=== PATIENT | male | born 1995 | race Asian ===

== ENCOUNTER 2017-11-02 13:19 | Emergency (ER) | payer OTHER ==
[2017-11-02 13:24] VITALS: BP 137/58; PULSE 95; RESP 16; TEMP 98.5; O2SAT 100
--- NOTE | 2017-11-02 14:55 | PD ---
HPI Chief Complaint: Flank/Kidney Pain Time Seen by Provider: 14:02 Travel History International Travel<30 days: No Contact w/Intl Traveler<30days: No Traveled to known affect area: No History of Present Illness HPI 21 yo M c/o R flank pain since this morning. He woke up with the pain. No recent injury or excessive muscle use. He reports a history of kidney stones and states today feel very different from today's event. He has not seen blood in the urine. He wonders if it might be appendicitis. He's had no fever. The appetite has been normal. Pain is intermittent though at times can be severe. [facility] Social History Alcohol Use: No Tobacco Use: No Substance Use: No Allergies-Medications (Allergen,Severity, Reaction): Coded Allergies: Penicillins (Verified Allergy, Unknown, 11/02/17) Reported Meds & Prescriptions Reported Meds & Active Scripts Active Calcium Gluconate 45 Mg Calcium (500 Mg) Tab 500 Mg PO DAILY 30 Days 1 gram of salt is 93 mg elemental calcium. Review of Systems Except as stated in HPI: all other systems reviewed are Neg Physical Exam Narrative GENERAL: 21 yo M, WNWD, NAD Vital Signs Date Time Temp Pulse Resp B/P (MAP) Pulse Ox O2 Delivery O2 Flow Rate FiO2 11/02/17 13:24 98.5 95 16 137/58 (84) 100 SKIN: Warm and dry. HEAD: Atraumatic. Normocephalic. EYES: Pupils equal and round. No scleral icterus. No injection or drainage. ENT: No nasal bleeding or discharge. Mucous membranes pink and moist. NECK: Trachea midline. No JVD. CARDIOVASCULAR: Regular rate and rhythm. RESPIRATORY: No accessory muscle use. Clear to auscultation. Breath sounds equal bilaterally. GASTROINTESTINAL: There is no abdominal tenderness. There is trace tenderness to percussion of the right flank. MUSCULOSKELETAL: Extremities without clubbing, cyanosis, or edema. No obvious deformities. NEUROLOGICAL: Awake and alert. No obvious cranial nerve deficits. Motor grossly within normal limits. Five out of 5 muscle strength in the arms and legs. Normal speech. PSYCHIATRIC: Appropriate mood and affect; insight and judgment normal. Data Data Last Documented VS Vital Signs Date Time Temp Pulse Resp B/P (MAP) Pulse Ox O2 Delivery O2 Flow Rate FiO2 11/02/17 13:24 98.5 95 16 137/58 (84) 100 Orders Orders Complete Blood Count With Diff (11/02/17 13:26) Comprehensive Metabolic Panel (11/02/17 13:26) Urinalysis - C+S If Indicated (11/02/17 13:26) Lipase (11/02/17 13:26) Calcium Gluconate (Calcium Gluconate) (11/02/17 16:30) Ed Discharge Order (11/02/17 16:26) Calcium Carbonate Chew (Tums Chew) (11/02/17 18:00) Labs Laboratory Tests Test 11/02/17 14:30 11/02/17 15:00 11/02/17 15:25 White Blood Count 7.9 TH/MM3 Red Blood Count 5.02 MIL/MM3 Hemoglobin 15.4 GM/DL Hematocrit 43.6 % Mean Corpuscular Volume 86.9 FL Mean Corpuscular Hemoglobin 30.7 PG Mean Corpuscular Hemoglobin Concent 35.3 % Red Cell Distribution Width 12.8 % Platelet Count 389 TH/MM3 Mean Platelet Volume 7.5 FL Neutrophils (%) (Auto) 67.7 % Lymphocytes (%) (Auto) 20.2 % Monocytes (%) (Auto) 9.6 % Eosinophils (%) (Auto) 1.9 % Basophils (%) (Auto) 0.6 % Neutrophils # (Auto) 5.4 TH/MM3 Lymphocytes # (Auto) 1.6 TH/MM3 Monocytes # (Auto) 0.8 TH/MM3 Eosinophils # (Auto) 0.2 TH/MM3 Basophils # (Auto) 0.0 TH/MM3 CBC Comment DIFF FINAL Differential Comment Urine Color YELLOW Urine Turbidity CLEAR Urine pH 5.5 Urine Specific [place] 1.022 Urine Protein NEG mg/dL Urine Glucose (UA) NEG mg/dL Urine Ketones NEG mg/dL Urine Occult Blood NEG Urine Nitrite NEG Urine Bilirubin NEG Urine Urobilinogen LESS THAN 2.0 MG/DL Urine Leukocyte Esterase NEG Urine RBC 1 /hpf Urine WBC LESS THAN 1 /hpf Urine Squamous Epithelial Cells <1 /hpf Microscopic Urinalysis Comment CULT NOT INDICATED Blood Urea Nitrogen 14 MG/DL Creatinine 1.07 MG/DL Random Glucose 82 MG/DL Total Protein 6.6 GM/DL Albumin 3.4 GM/DL Calcium Level 7.3 MG/DL Alkaline Phosphatase 84 U/L Aspartate Amino Transf (AST/SGOT) 22 U/L Alanine Aminotransferase (ALT/SGPT) 30 U/L Total Bilirubin 0.5 MG/DL Sodium Level 142 MEQ/L Potassium Level 3.4 MEQ/L Chloride Level 110 MEQ/L Carbon Dioxide Level 23.6 MEQ/L Anion Gap 8 MEQ/L Estimat Glomerular Filtration Rate 86 ML/MIN Protein Corrected Calcium 7.6 MG/DL Lipase 122 U/L [facility] Medical Decision Making Medical Screen Exam Complete: Yes Emergency Medical Condition: Yes Medical Record Reviewed: Yes Differential Diagnosis Constipation, Gastritis, Acute Cholecystitis, Biliary Colic, Pancreatitis, [place] , Hepatitis, Bowel Obstruction, Cystitis, Mesenteric Ischemia, AAA, Appendicitis , Renal Stone/Hydronephrosis, GERD, perforated viscous Narrative Course CBC & BMP Diagram 11/02/17 14:30 11/02/17 15:25 Total Protein 6.6, Albumin 3.4, Calcium Level 7.3 *L, Alkaline Phosphatase 84, Aspartate Amino Transf (AST/SGOT) 22, Alanine Aminotransferase (ALT/SGPT) 30, Total Bilirubin 0.5 Urinalysis shows no UTI or hematuria Potassium replenished. Etiology of pain is unclear however given the essentially normal labs and a benign examination, further investigation with CT scan at this point is considered reasonably safely deferable. Appendicitis is again considered to be quite a bit lower on the differential in the absence of abdominal tenderness. Diagnosis Primary Impression: Flank pain Med/Other Pt SpecificInfo: Prescription(s) given, No Change to Meds Scripts Calcium Gluconate (Calcium Gluconate) 45 Mg Calcium (500 Mg) Tab 500 MG PO DAILY for Calcium Supplement for 30 Days, TAB 0 Refills 1 gram of salt is 93 mg elemental calcium. Prov: Claudio Finley MD 11/02/17 Disposition: 01 DISCHARGE HOME Condition: Stable Claudio Finley MD Nov 02, 2017 14:55
[2017-11-02 14:59] LABS: AUTOMATED NEUTROPHIL # 5.4 TH/MM3 (1.8-7.7); BASOPHIL % 0.6 % (0.0-2.0); EOSINOPHIL # 0.2 TH/MM3 (0-0.4); EOSINOPHIL % 1.9 % (0.0-4.0); HEMATOCRIT 43.6 % (39.0-51.0); HEMOGLOBIN 15.4 GM/DL (13.0-17.0); LYMPH % 20.2 % (9.0-44.0); LYMPHOCYTE # 1.6 TH/MM3 (1.0-4.8); MEAN CELL VOLUME 86.9 FL (80.0-100.0); MEAN CORPUSCULAR HEMOGLOBIN 30.7 PG (27.0-34.0); MEAN CORPUSCULAR HGB CONC 35.3 % (32.0-36.0); MEAN PLATELET VOLUME 7.5 FL (7.0-11.0); MONO % 9.6 % (0.0-8.0); MONOCYTE # 0.8 TH/MM3 (0-0.9); NEUT % 67.7 % (16.0-70.0); PLATELET COUNT 389 TH/MM3 (150-450); RED BLOOD COUNT 5.02 MIL/MM3 (4.50-5.90); RED CELL DISTRIBUTION WIDTH 12.8 % (11.6-17.2); WHITE BLOOD COUNT 7.9 TH/MM3 (4.0-11.0)
[2017-11-02 16:01] LABS: BILIRUBIN, URINE NEG (NEG); BLOOD, URINE NEG (NEG); GLUCOSE,URINE NEG (NEG); KETONE, URINE NEG (NEG); NITRITE,URINE NEG (NEG); PH, URINE 5.5 (5.0-8.5); SQUAMOUS EPITHELIAL CELL URINE <1 /hpf (0-5); URINE COLOR YELLOW (YELLW/STRAW); URINE LEUKOCYTE ESTERASE NEG (NEG)
[2017-11-02 16:10] LABS: ALBUMIN 3.4 GM/DL (3.4-5.0); BICARBONATE 23.6 MEQ/L (21.0-32.0); CALCIUM 7.3 MG/DL (8.5-10.1); CALCIUM-PROTEIN CORRECTED 7.6 MG/DL (8.5-10.1); CREATININE 1.07 MG/DL (0.60-1.30); TOTAL BILIRUBIN ADULT 0.5 MG/DL (0.2-1.0); TOTAL PROTEIN 6.6 GM/DL (6.4-8.2)
[2017-11-02] MEDS ORDERED: CALG500 PO (16:25)
[2017-11-02] MEDS ORDERED: CALCIUM GLUCONATE 500 MG TAB PO ONE (16:30)
[2017-11-02] MEDS ORDERED: CALCIUM CARBONATE 500 MG CHEWABLE TAB PO ONE (18:00)
== END 2017-11-02 17:35 | disposition home or self-care (01) ==
LOC: NEPD 13:19
DX: R10.9 Unspecified abdominal pain (principal); Z87.442 Personal history of urinary calculi
CPT/HCPCS: 80053; 81001; 83690; 85025; 99283